=== PATIENT | female | born 1960 | race African-American/Black ===

== ENCOUNTER 2016-12-05 20:08 | Emergency (ER) | payer MEDICAID ==
[~2016-12-05] VITALS: Ht 167.6 cm; Wt 150.0 kg
[2016-12-05 20:10] VITALS: BP 134/81; PULSE 106; RESP 16; TEMP 100; O2SAT 99
== END 2016-12-05 23:03 | disposition left against medical advice (07) ==
LOC: NED 20:08
DX: R68.89 Other general symptoms and signs (principal)
CPT/HCPCS: 99281

== ENCOUNTER 2017-10-03 07:26 | Emergency (ER) | payer MEDICAID ==
[2017-10-03 07:31] VITALS: BP 169/81; PULSE 89; RESP 17; TEMP 99.1; O2SAT 96
[2017-10-03] MEDS ORDERED: LOSA25TA PO (07:44)
[2017-10-03] MEDS ORDERED: AMLO10TA2 PO (07:44)
[2017-10-03] MEDS ORDERED: FERR324T4 PO (07:44)
[2017-10-03] MEDS ORDERED: RESP: ALBUTEROL 2.5 MG/IPRATROPIUM 0.5 MG NEB (SCH) INH ONE (09:30)
[2017-10-03] MEDS ORDERED: ZITHTAB PO (09:39)
[2017-10-03] MEDS ORDERED: PRED20 PO (09:39)
[2017-10-03] MEDS ORDERED: VENTAER INH (09:39)
--- NOTE | 2017-10-03 09:39 | PD ---
HPI Chief Complaint: Cold / Flu Symptoms Time Seen by Provider: 07:39 Travel History International Travel<30 days: No Contact w/Intl Traveler<30days: No Traveled to known affect area: No History of Present Illness HPI 56-year-old female complains of coughing congestion wheezing and vaginal bleeding. Patient has history of abnormal uterine bleeding in the past. Patient was seen by personal physician and referral to [employer]. Patient denies any chance of being . Patient states that she started having vaginal bleeding for the past month. Patient denies abdominal pain dysuria or frequency. Patient started having coughing congestion wheezing for the past several days. Patient states that the cough is mildly productive. Patient denies any chest pain or shortness of breath. Patient denies any fever chills. Patient has history of reactive airway disease and has been using albuterol at home. PFSH Past Medical History Cardiovascular Problems: Yes (HTN) Diminished Hearing: No Hypertension: Yes ?: Not LMP: current Ovarian Cysts: Yes (POLYCYSTIC OVARY DISEASE) Dilation and Curettage (D&C): Yes Past Surgical History Section: Yes Social History Alcohol Use: Yes (RARE) Tobacco Use: No Substance Use: No Allergies-Medications (Allergen,Severity, Reaction): Coded Allergies: No Known Allergies (Unverified , 12/05/16) Reported Meds & Prescriptions Reported Meds & Active Scripts Active Reported Ferrous Sulfate DR (Ferrous Sulfate) 324 Mg Tabdr 324 Mg PO TID Losartan (Losartan Potassium) 25 Mg Tab 25 Mg PO DAILY Amlodipine (Amlodipine Besylate) 10 Mg Tab 10 Mg PO DAILY Review of Systems General / Constitutional: No: Fever Eyes: No: Visual changes HENT: No: Headaches Cardiovascular: No: Chest Pain or Discomfort Respiratory: Positive: Cough, Wheezing, No: Shortness of Breath Gastrointestinal: No: Abdominal Pain Genitourinary: Positive: Vaginal Bleeding, No: Dysuria Musculoskeletal: No: Pain Skin: No Rash Neurologic: No: Weakness Psychiatric: No: Depression Endocrine: No: Polydipsia Hematologic/Lymphatic: No: Easy Bruising Physical Exam Narrative GENERAL: Well-nourished, well-developed patient. SKIN: Focused skin assessment warm/dry. HEAD: Normocephalic. EYES: No scleral icterus. No injection or drainage. Aside TM: Clear. Throat: Nonerythematous. NECK: Supple, trachea midline. No JVD or lymphadenopathy. CARDIOVASCULAR: Regular rate and rhythm without murmurs, gallops, or rubs. RESPIRATORY: Breath sounds equal bilaterally. No accessory muscle use. Mild expiratory wheezes bilaterally. No rhonchi. GASTROINTESTINAL: Abdomen soft, non-tender, nondistended. MUSCULOSKELETAL: No cyanosis, or edema. BACK: Nontender without obvious deformity. No CVA tenderness. Data Data Last Documented VS Vital Signs Date Time Temp Pulse Resp B/P (MAP) Pulse Ox O2 Delivery O2 Flow Rate FiO2 10/03/17 07:31 99.1 89 17 169/81 (110) 96 Room Air Orders Orders Albuterol-Ipratropium Neb (Duoneb Neb) (10/03/17 09:30) MDM Medical Decision Making Medical Screen Exam Complete: Yes Emergency Medical Condition: Yes Differential Diagnosis Differential diagnosis including URI, bronchitis, pneumonia, exacerbation of reactive airway disease. Narrative Course 56-year-old female complains of coughing congestion wheezing. History of reactive airway disease. Albuterol with Atrovent unit dose treatment 1. Patient was seen by personal physician and [employer] for abnormal uterine bleeding. Advised patient to follow-up with gynecology for that. Diagnosis Primary Impression: Reactive airway disease with acute exacerbation Qualified Codes: J45.21 - Mild intermittent asthma with (acute) exacerbation Additional Impression: URI, acute Patient Instructions: General Instructions Additional Instructions: Albuterol is needed for shortness of breath and wheezing. Prednisone Z-Nick as directed. Follow-up with personal physician. Return if worse. Follow-up with [employer] for abnormal uterine bleeding. Med/Other Pt SpecificInfo: Prescription(s) given Scripts Azithromycin (Zithromax Z-Nick) 250 Mg Dspk 250 MG PO DIRECTED for Infection, #1 DSPK 0 Refills 500 MG (2 tabs) day 1, then 1 tab days 2-5. Prov: Haider Gutierres MD 10/03/17 Prednisone (Prednisone) 20 Mg Tab 20 MG PO BID, #10 TAB 0 Refills Prov: Haider Guiterres MD 10/03/17 Albuterol 18 GM Inh (Ventolin Hfa 18 GM Inh) 90 Mcg/Act Aer 2 PUFF INH Q4-6H Y for SHORTNESS OF BREATH, #1 INHALER 0 Refills Prov: Haider Gutierres MD 10/03/17 Disposition: 01 DISCHARGE HOME Condition: Stable Haider Gutierres MD Oct 03, 2017 09:39
[2017-10-03 10:45] VITALS: BP 114/65; PULSE 82; RESP 16; O2SAT 96
== END 2017-10-03 10:51 | disposition home or self-care (01) ==
LOC: NEPC 07:26
DX: J45.21 Mild intermittent asthma with (acute) exacerbation (principal); J06.9 Acute upper respiratory infection, unspecified; N93.9 Abnormal uterine and vaginal bleeding, unspecified; I10 Essential (primary) hypertension
CPT/HCPCS: 94664; 99284